=== PATIENT | male | born 1965 ===

== ENCOUNTER 2017-10-04 08:26 | Inpatient (IN) | payer OTHER ==
[~2017-10-04] VITALS: Ht 175.3 cm; Wt 109.5 kg
[2017-10-04] VITALS (22 sets, daily range): BP systolic 111–180; BP diastolic 67–119
[~2017-10-04 08:26] MED LIST: AMLO2.5T2 PO; ASPI-1265 PO; ATOR40TA PO; ENAL10TA78 PO; HYDR12.5 PO; METF500T7 PO; MINE3.5O5 EACHEYE; POLY15DR56 EACHEYE; acetaminophen 325mg tablet PO ONE; ceFAZolin inj. 2,000 MG in dextrose 5%-water 100 ML IV ONE; famotidine 20mg tablet PO ONE; gabapentin 300mg capsule PO ONE; metoclopramide 5 mg/ml inj IV ONE; oxyCODONE SR 10mg (sust. release) tab PO ONE; ringers solution, lacted 1,000 ML IV SCH; tranexamic acid inj. 1,000 MG in normal saline 100ml IV soln 90 ML IV ONE; vancomycin inj 1,500 MG in normal saline 300ml IV soln IV ONE
[2017-10-04] MEDS ORDERED: ceFAZolin 1000mg inj ONE (08:34)
[2017-10-04] MEDS ORDERED: Thrombin (Bovine) 5,000 unit vial TP ONE (08:35)
[2017-10-04] MEDS ORDERED: sevoflurane 250ml liquid IH ONE (09:17)
[2017-10-04] MEDS ORDERED: MIDAZolam 5mg/5ml vial ONE (09:22)
[2017-10-04] MEDS ORDERED: fentaNYL/PF 50MCG/1 ML 2ML syringe ONE ×2 (09:22→10:05)
[2017-10-04 10:33] LABS: ISTAT K 5.9 mmol/L (3.5-5.1)
[2017-10-04 10:34] LABS: ISTAT CREATININE 1.1 mg/dL (0.8-1.3); ISTAT IONIZED CALCIUM 1.26 mmol/L (1.03-1.32); POC BUN/CREATININE RATIO 20.9 (5.4-32.0)
[2017-10-04] MEDS ORDERED: ringers solution, lacted 1,000 ML IV SCH (11:03)
[2017-10-04] MEDS ORDERED: ondansetron/PF 4mg/2ml inj IV PRN ×2 (11:05→12:20)
[2017-10-04] MEDS ORDERED: morphine 4 MG/ML inj SYRINge IV PRN ×2 (11:05)
[2017-10-04] MEDS ORDERED: proCHLORperazine 10 MG/2 ml inj IV PRN (11:05)
[2017-10-04] MEDS ORDERED: meperidine/PF 25mg/ml syringe IV PRN ×3 (11:05)
[2017-10-04] MEDS ORDERED: bisacodyl 10mg suppository rectal RC PRN (12:20)
[2017-10-04] MEDS ORDERED: acetaminophen 325mg tablet PO PRN (12:20)
[2017-10-04] MEDS ORDERED: ondansetron/PF 4mg/2ml inj ONE (12:20)
[2017-10-04] MEDS ORDERED: oxyCODONE IR 5mg (immed. release) tablet PO PRN (12:20)
[2017-10-04] MEDS ORDERED: HYDROmorphone inj. 0.5 MG/0.5 ML DISP.SYRIN IV PRN ×2 (12:20)
[2017-10-04] MEDS ORDERED: propofol inj 20 ML IV ONE (12:20)
[2017-10-04] MEDS ORDERED: dexamethasone sod phosphate 4mg/ml inj. ONE (12:20)
[2017-10-04] MEDS ORDERED: magnesium hydroxide 30ml (MOM) UD suspension PO PRN (12:20)
[2017-10-04] MEDS ORDERED: ROPIVAcaine 0.5% (5mg/ml) 30ml vial ONE (12:20)
[2017-10-04] MEDS ORDERED: LIDOcaine 1%/PF 5ML 10 MG/ML VIAL ONE (12:20)
[2017-10-04] MEDS ORDERED: diphenhydrAMINE 25mg capsule PO PRN ×2 (12:20)
[2017-10-04] MEDS: gabapentin 300mg capsule PO SCH ×2 (14:49→19:54)
[2017-10-04] MEDS: acetaminophen 325mg tablet PO SCH ×2 (14:50→19:55)
[2017-10-04] MEDS ORDERED: tranexamic acid inj. 1,100 MG in normal saline 100ml IV soln 100 ML IV ONE (15:00)
[2017-10-04] MEDS: ceFAZolin 1GM/D5W- ADD-VANTAGE 50 ML IV SCH (16:35)
[2017-10-04] MEDS: potassium cl 20mEq in 1/2 NS 1,000 ML IV SCH ×2 (19:54→20:16)
[2017-10-04] MEDS ORDERED: vancomycin/NS 1 GM ADD-VANTAGE 250 ML IV SCH (20:00)
[2017-10-04] MEDS ORDERED: sennosides 8.6mg tablet PO SCH (21:00)
[2017-10-05] MEDS: ceFAZolin 1GM/D5W- ADD-VANTAGE 50 ML IV SCH (00:56)
[2017-10-05] MEDS: acetaminophen 325mg tablet PO SCH ×2 (00:56→08:31)
[2017-10-05] MEDS: oxyCODONE IR 5mg (immed. release) tablet PO PRN ×3 (01:01→10:40)
[2017-10-05] MEDS: potassium cl 20mEq in 1/2 NS 1,000 ML IV SCH (05:37)
[2017-10-05 05:54] LABS: BASOPHILS % (AUTO) 0.2 % (0-1); EOSINOPHILS # (AUTO) 0.1 X10'3 (0-0.9); EOSINOPHILS % (AUTO) 1.3 % (0-6); HEMATOCRIT 34.9 % (42.0-52.0); HEMOGLOBIN 12.1 g/dl (14.0-17.9); LYMPHOCYTES # (AUTO) 2.1 X10'3 (1.1-4.8); LYMPHOCYTES % (AUTO) 22.7 % (21-51); MEAN CORPUSCULAR HEMOGLOBIN 29.5 PG (27.0-31.0); MEAN CORPUSCULAR HGB CONC 34.7 % (33.0-36.5); MEAN CORPUSCULAR VOLUME 84.9 FL (78-98); MEAN PLATELET VOLUME 8.1 FL (7.4-10.4); MONOCYTES # (AUTO) 1.4 X10'3 (0-0.9); MONOCYTES % (AUTO) 14.9 % (2-12); NEUTROPHILS # (AUTO) 5.7 X10'3 (1.8-7.7); NEUTROPHILS % (AUTO) 60.9 % (42-75); PLATELET COUNT 296 X10'3 (140-440); RED BLOOD COUNT 4.11 X10'6 (4.70-6.10); RED CELL DISTRIBUTION WIDTH 14.6 % (11.5-14.5); WHITE BLOOD COUNT 9.3 X10'3 (4.5-11.0)
[2017-10-05 06:00] VITALS: BP 116/53
[2017-10-05 06:32] LABS: ANION GAP 5 (8-16); CHLORIDE 104 MMOL/L (99-107); POTASSIUM 4.5 MMOL/L (3.5-5.1); SODIUM 138 MMOL/L (135-145); TOTAL CARBON DIOXIDE 29.2 MMOL/L (24-32)
[2017-10-05] MEDS ORDERED: aspirin 325mg tablet PO SCH (08:30)
[2017-10-05] MEDS: gabapentin 300mg capsule PO SCH ×2 (08:30→12:57)
[2017-10-05 10:00] VITALS: BP 160/93
[2017-10-05] MEDS ORDERED: celeCOXIB 100mg capsule PO SCH (20:00)
[2017-10-06] MEDS ORDERED: acetaminophen 325mg tablet PO PRN (12:20)
== END 2017-10-05 13:50 | DRG 483 ==
LOC: PRE-OP 08:26 → PAS IN 08:27 → EDSTATUS 09:15 → EEVIPCON 10:30 → ORTHO 4S 14:30
PROVIDERS: ADMIT Orthopaedic Surgery; ATTEND Orthopaedic Surgery
PROC: 0LS30ZZ Reposition Right Upper Arm Tendon, Open Approach (ICD-10-PCS; 2017-10-04)
PROC: 3E0T3BZ Introduction of Anesthetic Agent into Peripheral Nerves and Plexi, Percutaneous Approach (ICD-10-PCS; 2017-10-04)
PROC: 0RRJ00Z Replacement of Right Shoulder Joint with Reverse Ball and Socket Synthetic Substitute, Open Approach (ICD-10-PCS; principal; 2017-10-04 09:17)
DX: M19.011 Primary osteoarthritis, right shoulder (principal); D62 Acute posthemorrhagic anemia; E11.9 Type 2 diabetes mellitus without complications; E78.5 Hyperlipidemia, unspecified; M21.821 Other specified acquired deformities of right upper arm; I10 Essential (primary) hypertension; M75.101 Unspecified rotator cuff tear or rupture of right shoulder, not specified as traumatic; Z79.899 Other long term (current) drug therapy; Z79.01 Long term (current) use of anticoagulants; Z79.82 Long term (current) use of aspirin
CPT/HCPCS: 36415; 73020; 80047; 80051; 85025; 87070; 97110; 97162; 97530; A4565; A7000; C1758; C9250; J0690; J1100; J2001; J2250; J2405; J2704; J2765; J2795; J3010; J3370; J7030; J7060; J7120